=== PATIENT | female | born 1995 | race Caucasian/White ===

== ENCOUNTER 2016-07-20 21:05 | Emergency (ER) | payer BC, OTHER ==
[~2016-07-20] VITALS: Ht 160 cm; Wt 109.0 kg
[2016-07-20 21:31] VITALS: TEMP 37.2; Ht 160 cm; Wt 109.0 kg
[2016-07-20] MEDS ORDERED: IBUPROFEN 600 MG TAB PO STA (21:45)
[2016-07-20] MEDS ORDERED: PRLSR20 PO (22:03)
[2016-07-20] MEDS ORDERED: CLON0.1T12 PO (22:03)
[2016-07-20] MEDS ORDERED: ACET325T96 PO (22:03)
[2016-07-20] MEDS ORDERED: VENL1CAP92 PO (22:03)
[2016-07-20] MEDS ORDERED: DOXE50CA3 PO (22:03)
[2016-07-20] MEDS ORDERED: IBUP-1050 PO (22:03)
[2016-07-20] MEDS ORDERED: MELATAB2 PO (22:03)
[2016-07-20] MEDS ORDERED: MULT-506 PO (22:03)
[2016-07-20] MEDS ORDERED: LACT3000 PO (22:03)
[2016-07-20] MEDS ORDERED: CHLO1TAB19 PO (22:03)
--- NOTE | 2016-07-20 22:15 | DIAGNOSTIC IMAGING REPORT ---
LEFT KNEE 1 OR 2 VIEWS ROUTINE CLINICAL HISTORY: Left knee pain. COMPARISON: None FINDINGS: Alignment of left knee is anatomic. No acute fracture is identified. There may be mild lateral component joint space narrowing. No joint effusion is present. IMPRESSION: 1. No acute fracture. 2. Suspected mild to moderate lateral compartment joint space narrowing. 3. No joint effusion. Electronically signed by: Pola Holt M.D. 07/20/2016 10:13 PM Dictated Date/Time: 07/20/2016 10:12 PM
--- NOTE | 2016-07-20 22:23 | EMERGENCY ROOM VISIT NOTE ---
ED Visit Note First contact with patient: 21:36 CHIEF COMPLAINT: Left knee pain HISTORY OF PRESENT ILLNESS: This 20-year-old female was brought by ambulance from [facility] for heroin addiction for left knee pain. The patient states that she was sitting on a bench and when she went to lift up her left leg to move it she got severe pain in the knee. The patient states that she has a history of her kneecap dislocating. The patient has been able to bear weight but it is painful. She states she is unable to bend the knee. REVIEW OF SYSTEMS: 6 system review was performed and was negative unless stated otherwise in history of present illness. PMH: The patient is healthy; heroin addiction, tonsillectomy and adenoidectomy , cholecystectomy SOCIAL HISTORY: Patient is currently at [facility] for heroin addiction PHYSICAL EXAM: Vital Signs: Were reviewed Reviewed Nurse's notes. GEN.: Obese 20-year-old white female appears in no acute distress. MENTAL STATUS: Alert, oriented, and cooperative. LEFT KNEE: No gross bony deformity noted. The patient is tender to palpation over the lateral joint space and popliteal region. She has limited range of motion secondary to pain. There is no joint effusion. There is no ligamentous instability. The skin is normal and intact. EMERGENCY DEPARTMENT COURSE: The patient was evaluated. The patient was given Motrin 600 mg by mouth for pain. X-ray of the left knee was ordered and interpreted by the radiologist and myself. DIAGNOSTICS:LEFT KNEE 1 OR 2 VIEWS ROUTINE CLINICAL HISTORY: Left knee pain. COMPARISON: None FINDINGS: Alignment of left knee is anatomic. No acute fracture is identified. There may be mild lateral component joint space narrowing. No joint effusion is present. IMPRESSION: 1. No acute fracture. 2. Suspected mild to moderate lateral compartment joint space narrowing. 3. No joint effusion. Electronically signed by: Pola Holt M.D. 07/20/2016 10:13 PM The patient was informed of the findings. Eliezer wrap was applied to the knee. The patient was given crutches and discharged in stable condition. DIAGNOSIS: Left knee sprain DISCHARGE INSTRUCTIONS: Ibuprofen 600 mg every 6 hours with food for pain. Ice and elevation as much as possible over the next 24 hours. Wear Eliezer wrap and use crutches for ambulation until pain is tolerable without them. If there is no improvement in 3-4 days recommend follow-up with orthopedics. Current/Historical Medications Scheduled Lactase (Lactaid), 1 TAB PO DIRECTED Multivitamin (Multivitamin), 1 TAB PO DAILY Omeprazole (Prilosec), 20 MG PO DAILY Venlafaxine Hcl (Effexor Xr), 1 CAP PO DAILY Scheduled PRN Acetaminophen Tab (Tylenol), 325-650 MG PO Q4H PRN for Pain Chlorpromazine Hcl (Thorazine), 25 MG PO BID PRN for Anxiety/Agitation Clonidine Hcl (Catapres), 1 TAB PO QID PRN for Anxiety/Agitation Doxepin (Sinequan), 50-100 MG PO HS PRN for Sleep Ibuprofen (Advil), 200-400 MG PO Q4H PRN for Pain Melatonin (Melatonin Maximum Strengt), 1 TAB PO HS PRN for Sleep Allergies Coded Allergies: No Known Allergies (Unverified , 07/20/16) Vital Signs Date Time Temp Pulse Resp B/P Pulse Ox O2 Delivery O2 Flow Rate FiO2 07/20/16 21:31 37.2 85 20 115/69 94 Room Air Medications Administered Medications (Trade) Dose Ordered Sig/Nat Route Start Time Stop Time Status Last Admin Dose Admin Ibuprofen (Motrin Tab) 600 mg NOW STAT PO 07/20/16 21:45 07/20/16 21:46 DC 07/20/16 22:09 600 MG Departure Information Patient Instructions [facility]
[2016-07-20 22:52] VITALS: BP 135/71; PULSE 75; O2SAT 98
== END 2016-07-20 22:53 | disposition home or self-care (01) ==
LOC: C.EDB 21:07 → C.EDD 22:53
DX: S83.92XA Sprain of unspecified site of left knee, initial encounter (principal); X58.XXXA Exposure to other specified factors, initial encounter; Y93.89 Activity, other specified; Y99.8 Other external cause status; F11.20 Opioid dependence, uncomplicated; Z90.49 Acquired absence of other specified parts of digestive tract; Z90.89 Acquired absence of other organs